=== PATIENT | male | born 1955 | race Caucasian/White ===

== ENCOUNTER 2016-12-22 10:50 | Emergency (ER) | payer BC | END 2016-12-22 11:43 | disposition home or self-care (01) | LOC: SCSER 10:50 | DX: Z48.817 Encounter for surgical aftercare following surgery on the skin and subcutaneous tissue (principal); E78.5 Hyperlipidemia, unspecified | CPT/HCPCS: 99282 ==

== ENCOUNTER 2023-02-23 09:30 | Inpatient (IN) | payer BC, MEDICARE ==
[2023-02-23] MEDS ORDERED: CEFAZOLIN 2 GM VIAL ONE (10:07)
[2023-02-23] MEDS ORDERED: Sodium Chloride 0.9% 100 ML ONE (10:07)
[2023-02-23] MEDS ORDERED: Lidocaine 1% MPF 2 ML VIAL ONE (10:07)
[2023-02-23] MEDS ORDERED: Famotidine/PF 20 mg/2ml Vial ONE (10:47)
[2023-02-23] MEDS ORDERED: Vancomycin 1 GM VIAL ONE (11:17)
[2023-02-23] MEDS ORDERED: Thrombin 5000 UNITS/5 ML VIAL ONE (11:17)
[2023-02-23] MEDS ORDERED: Midazolam HCl 2 mg/2 ml Vial ONE (11:22)
[2023-02-23] MEDS ORDERED: Lidocaine 1% PF 5 ML VIAL ONE (12:58)
[2023-02-23] MEDS ORDERED: PROPOFOL 20 ML ONE (12:58)
[2023-02-23] MEDS ORDERED: PROPOFOL 0 ML ONE (12:58)
[2023-02-23] MEDS ORDERED: Vecuronium 10 MG VIAL ONE ×2 (12:58→15:14)
[2023-02-23] MEDS ORDERED: Fentanyl 250 MCG/5 ML VIAL ONE (12:59)
[2023-02-23] MEDS ORDERED: Albumin 5% 500 ML ONE (13:03)
[2023-02-23] MEDS ORDERED: SUCCINYLCHOLINE/SOD CL,ISO/PF 200 MG/10 ML SYRINGE FS ONE (13:21)
[2023-02-23] MEDS ORDERED: Dexamethasone 20 MG/5 ML VIAL ONE (15:24)
[2023-02-23] MEDS ORDERED: HYDROmorphone 2 MG/ML VIAL ONE (16:30)
[2023-02-23] MEDS ORDERED: PHENYLEPHRINE-NS 100 MCG/ML 10 ML SYRINGE ONE (16:41)
[2023-02-23] MEDS ORDERED: Morphine Sulfate 2 MG/ML SYRINGE SLOW IVP PRN (17:18)
[2023-02-23] MEDS ORDERED: Promethazine HCl 25 MG/ML VIAL IM PRN ×2 (17:18→17:19)
[2023-02-23] MEDS ORDERED: Meperidine HCl/PF 25 MG/ML VIAL SLOW IVP PRN (17:18)
[2023-02-23] MEDS ORDERED: Ondansetron HCl/PF 4 MG/2 ML Vial IVP PRN (17:18)
[2023-02-23] MEDS ORDERED: HYDROmorphone 2 MG/ML VIAL SLOW IVP PRN (17:18)
[2023-02-23] MEDS ORDERED: Ketorolac Tromethamine 30 MG/ML VIAL IVP PRN (17:18)
[2023-02-23] MEDS ORDERED: Ondansetron PF 4 MG/2 ML Vial IVP PRN (17:19)
[2023-02-23] MEDS ORDERED: diphenhydrAMINE 50 MG/ML VIAL IVP PRN (17:19)
[2023-02-23] MEDS ORDERED: diphenhydrAMINE 50 MG/ML VIAL IM PRN (17:19)
[2023-02-23] MEDS ORDERED: diphenhydrAMINE 25 MG CAP PO PRN (17:19)
[2023-02-23] MEDS ORDERED: HYDROmorphone/PF 10 MG in Sodium Chloride 0.9% 99 ML IV PRN (17:19)
[2023-02-23] MEDS ORDERED: Naloxone HCl 0.4 mg/ml Vial IV PRN (17:19)
[2023-02-23] MEDS ORDERED: Communication Order-Pharmacy FS SCH (17:30)
[2023-02-23] MEDS ORDERED: Glycopyrrolate 0.2 MG/ML 5 ML SYRINGE ONE (17:36)
[2023-02-23] MEDS ORDERED: Ondansetron PF 4 MG/2 ML Vial ONE (17:36)
[2023-02-23] MEDS ORDERED: NEOSTIGMINE 3 MG/3 ML SYR 3 MG/3 ML SYRINGE ONE (17:36)
[2023-02-23] MEDS ORDERED: fentaNYL 50 mcg/mL 1 mL Vial ONE (18:13)
[2023-02-23] MEDS ORDERED: Milk Of Magnesia 30 ML UDCUP PO PRN (19:01)
[2023-02-23] MEDS ORDERED: hydrALAZINE 20 MG/ML VIAL SLOW IVP PRN (19:03)
[2023-02-23] MEDS ORDERED: tiZANidine HCl 4 MG TAB PO PRN (19:03)
[2023-02-23] MEDS ORDERED: tiZANidine HCl 4 MG TAB ONE (19:25)
[2023-02-23] MEDS: CEFAZOLIN 2 GM in Sodium Chloride 0.9% 100 ML IVPB SCH (21:28)
[2023-02-23] MEDS: Tamsulosin HCl 0.4 MG CAP PO SCH (21:29)
[2023-02-23] MEDS: Sodium Chloride 0.9% 1,000 ML IV SCH (21:29)
[2023-02-23] MEDS: Rosuvastatin 10 MG TAB PO SCH (21:29)
[2023-02-23] MEDS: Docusate 100 MG CAP PO SCH (21:29)
[2023-02-23 22:43] VITALS: BMI 34.1
[2023-02-24] MEDS: Ketorolac Tromethamine 30 MG (1 mL) VIAL IVP SCH ×4 (00:35→16:29)
[2023-02-24] MEDS: CEFAZOLIN 2 GM in Sodium Chloride 0.9% 100 ML IVPB SCH ×3 (04:55→20:13)
[2023-02-24 05:34] LABS: #Monocytes 0.6 thou/uL (0.11-0.59); #Neutrophils 7.1 thou/uL (1.40-6.50); %Basophils 0.1 % (0.0-1.0); %Lymphocytes 6.9 % (21.0-51.0); %Monocytes 7.3 % (0.0-10.0); %Neutrophils 84.9 % (42.0-75.0); Hematocrit 33.1 % (42.0-52.0); Hemoglobin 10.3 g/dL (14.0-18.0); Mean Corpuscular HGB CONC 31.1 g/dL (32.0-36.0); Mean Corpuscular Hemoglobin 26.1 pg (27.0-31.0); Mean Platelet Volume 7.9 fL (7.4-10.4); Platelet Count 194 10x3/uL (130-400); RBC Distribution Width 14.9 % (11.5-14.5); Red Blood Cell (RBC) Count 3.94 mill/uL (4.70-6.10); White Blood Cell (WBC) Count 8.4 10x3/uL (4.8-10.8)
[2023-02-24 05:57] LABS: Anion Gap 10 mmol/L (10-20); BUN (Urea Nitrogen) 13 mg/dL (8.4-25.7); Calc. Creatinine Clearance 108 mL/min (70-130); Calcium 8.1 mg/dL (7.8-10.44); Carbon Dioxide 27 mmol/L (23-31); Chloride 101 mmol/L (98-107); Estimated GFR 74; Glucose 135 mg/dL (80-115); Potassium 4.8 mmol/L (3.5-5.1); Sodium 133 mmol/L (136-145)
[2023-02-24] MEDS ORDERED: HYDROcodone/Acetaminophen 5/325 mg Tablet PO PRN (08:47)
[2023-02-24] MEDS ORDERED: Morphine 2 MG/ML VIAL SLOW IVP PRN (08:48)
[2023-02-24] MEDS: Sodium Chloride 0.9% 1,000 ML IV SCH ×2 (08:50→20:14)
[2023-02-24] MEDS: Docusate 100 MG CAP PO SCH ×2 (08:51→20:14)
[2023-02-24] MEDS: Lisinopril 10 MG TAB PO SCH (08:51)
[2023-02-24] MEDS: Acetaminophen 325 MG TAB PO PRN (09:46)
[2023-02-24] MEDS: Acetaminophen/Codeine 30-300mg Tablet PO PRN (20:13)
[2023-02-24] MEDS: Tamsulosin HCl 0.4 MG CAP PO SCH (20:13)
[2023-02-24] MEDS: Rosuvastatin 10 MG TAB PO SCH (20:14)
[2023-02-25] MEDS: Ketorolac Tromethamine 30 MG (1 mL) VIAL IVP SCH (00:16)
[2023-02-25] MEDS: CEFAZOLIN 2 GM in Sodium Chloride 0.9% 100 ML IVPB SCH ×3 (03:36→20:13)
[2023-02-25] MEDS: Acetaminophen/Codeine 30-300mg Tablet PO PRN ×2 (08:17→15:50)
[2023-02-25] MEDS: Lisinopril 10 MG TAB PO SCH (08:18)
[2023-02-25] MEDS: Docusate 100 MG CAP PO SCH ×2 (08:19→20:13)
[2023-02-25] MEDS: Sodium Chloride 0.9% 1,000 ML IV SCH (11:48)
[2023-02-25] MEDS: HYDROcodone/Acetaminophen 10/325 mg Tablet PO PRN (12:01)
[2023-02-25] MEDS: Bisacodyl 5 MG TAB PO PRN (15:50)
[2023-02-25] MEDS: Acetaminophen 325 MG TAB PO PRN (17:14)
[2023-02-25] MEDS: Rosuvastatin 10 MG TAB PO SCH (20:13)
[2023-02-25] MEDS: Tamsulosin HCl 0.4 MG CAP PO SCH (20:13)
[2023-02-26] MEDS: Sodium Chloride 0.9% 1,000 ML IV SCH (02:52)
[2023-02-26] MEDS: HYDROcodone/Acetaminophen 10/325 mg Tablet PO PRN (05:28)
[2023-02-26] MEDS: CEFAZOLIN 2 GM in Sodium Chloride 0.9% 100 ML IVPB SCH (05:29)
[2023-02-26 08:10] VITALS: TEMP 98.1
[2023-02-26] MEDS: Lisinopril 10 MG TAB PO SCH (09:36)
[2023-02-26] MEDS: Docusate 100 MG CAP PO SCH (09:36)
[2023-02-26] MEDS: Bisacodyl 5 MG TAB PO PRN (09:45)
[2023-02-26] MEDS: Acetaminophen 325 MG TAB PO PRN (10:00)
[2023-02-26] MEDS ORDERED: Diazepam 5 MG TAB PO SCH (11:00)
[2023-02-26 11:44] VITALS: BP 149/76
== END 2023-02-26 11:53 | disposition home or self-care (01) | DRG 460 ==
LOC: SDC 09:30 → SJJU 18:59 → OBSVTOIN 02-24 08:49
PROVIDERS: ADMIT Surgery; ATTEND Surgery
PROC: 0SG3071 Fusion of Lumbosacral Joint with Autologous Tissue Substitute, Posterior Approach, Posterior Column, Open Approach (ICD-10-PCS; principal; 2023-02-23)
PROC: 01NB0ZZ Release Lumbar Nerve, Open Approach (ICD-10-PCS; 2023-02-23)
PROC: 01NR0ZZ Release Sacral Nerve, Open Approach (ICD-10-PCS; 2023-02-23)
DX: M48.062 Spinal stenosis, lumbar region with neurogenic claudication (principal); G96.09 Other spinal cerebrospinal fluid leak; M54.16 Radiculopathy, lumbar region; M51.36 Other intervertebral disc degeneration, lumbar region; M43.06 Spondylolysis, lumbar region
CPT/HCPCS: 36415; 80048; 85025; 93970; 96374; 96375; 96376; A4314; C1713; C1889; G0378; J1100; J1170; J1200; J1885; J2250; J2272; J2405; J2704; J3010; J3370; J3490; J7050; P9045; S0028